=== PATIENT | male | born 1975 | race Caucasian/White ===

== ENCOUNTER 2016-04-28 11:16 | Emergency (ER) | payer OTHER ==
--- NOTE | ~2016-04-28 | CR173 ---
[facility] A Service of [facility] & [facility] RADIOLOGY TEXT RESULTS PATIENT: TOYIN DOUGLAS LOCATION: CFTX : 71 UNIT #: [id number] AGE: [address]: Ashlyn Issa SEX: M ORDER DR: [id number] [facility] [address] [place], [place] [address] [id number] E MR#: [id number] Acc #: [id number] NAME: TOYIN DOUGLAS : 1975 SEX: M STUDY DATE/TIME: 04/28/2016 10:30 UNIT: [facility] ROOM: STUDY DESCRIPTION: CR Knee 3 Views Rt Attending Physician: Ashlyn Issa P.A.-C. Ordering Physician: Ashlyn Issa P.A.-C. Primary Care Physician: Primary Care Physician No MEDICAL IMAGING REPORT This report is preliminary unless electronic signature is present EXAM Right knee, 04/28/2016 at 10:30 hours HISTORY 40-year-old who felt a pop in knee at work today. Pain in right knee since pop. COMPARISON None FINDINGS AP, crosstable lateral and sunrise views demonstrate presence of a small suprapatellar bursa effusion. There is no fracture, dislocation or loose body. Mild spurring at the patellofemoral compartment. IMPRESSION A small suprapatellar bursa effusion is present without lipohemarthrosis or fracture. Mild spurring in the patellofemoral compartment. No loose body seen. Dictated by... Tuyet Palacios M.D. THIS IS AN ELECTRONICALLY VERIFIED REPORT Tuyet Palacios M.D. at 04/28/2016 6:58 PM FANNY/ray TD: 04/28/2016 15:03 JOB #: [id number] MEDICAL IMAGING REPORT COPY
== END 2016-04-28 11:25 | disposition home or self-care (01) ==
LOC: CFTX 11:16
DX: S83.421A Sprain of lateral collateral ligament of right knee, initial encounter (principal); M70.51 Other bursitis of knee, right knee; R03.0 Elevated blood-pressure reading, without diagnosis of hypertension; F17.210 Nicotine dependence, cigarettes, uncomplicated; X50.9XXA Other and unspecified overexertion or strenuous movements or postures, initial encounter; Y93.89 Activity, other specified; Y92.69 Other specified industrial and construction area as the place of occurrence of the external cause; Y99.0 Civilian activity done for income or pay
CPT/HCPCS: 29530; 73562; 99283